=== PATIENT | male | born 1990 | race Caucasian/White ===

== ENCOUNTER 2017-11-03 20:10 | Emergency (ER) | payer OTHER ==
--- NOTE | 2017-11-03 21:07 | ED Physician Documentation ---
General Adult - HISTORIAN Historian: patient - HPI Stated Complaint: abd pain Chief Complaint: General Adult Onset: hours Timing: still present Severity: moderate Further Comments: yes (Pt is a 27 yo male with lower abd/pelvic pain that radiates to his testicles, L > R. Pt has had these sx before, more than a year ago, but not so intense. Pt states that pain is intermittent, occurring in his lower abd and doubling him over when it occurs. Pt did not have n/v, fever. Pain radiates to his testicles and to his rectum. Pt states he has been having normal BM's and has not been constipated. Pt notes that he has had lose BMs for years, and that he sees oil spots floating on top of water in the toilet. Pt has not had weight loss and is well-appearing/well developed (not malnourished).) - ROS CONST: no problems EYES/ENT: none CVS/RESP: none GI/: abdominal pain (lower abdomen, radiates to testicles, L > R and to rectum ) MS/SKIN/LYMPH: none - PAST HX Past History: asthma Allergies/Adverse Reactions: Allergies Allergy/AdvReac Type Severity Reaction Status Date / Time No Known Allergies Allergy Verified 11/03/17 20:27 Home Medications: Ambulatory Orders Medication Instructions Recorded Ciprofloxacin HCl [Cipro] 500 mg PO BID #20 tablet 11/03/17 Metronidazole 500 mg PO Q8H #30 tablet 11/03/17 - SOCIAL HX Smoking History: non-smoker Alcohol Use: none Drug Use: none - FAMILY HX Family History: No - VITAL SIGNS Vital Signs: Vital Signs Temp Pulse Resp BP Pulse Ox 98.5 F 91 H 16 124/87 98 11/03/17 20:20 11/03/17 20:20 11/03/17 20:20 11/03/17 20:20 11/03/17 20:20 - REVIEWED ASSESSMENTS Nursing Assessment Reviewed: Yes Vitals Reviewed: Yes Progress - Progress Progress: u/a - trace ketones, otherwise negative. d/w Dr. Waldron, [facility]. Possible bowel inflammation with referred testicular pain, ? diverticulitis. Possible diverticulitis Rx Metronidazole 500 mg. Take one by mouth every 8 hrs for 10 days. Do not drink alcohol while taking Metronidazole. Rx Ciprofloxacin 500 mg. Take one by mouth every 12 hrs for 10 days. Follow up with [facility] [facility] about possible fat malabsorption symptoms. ED Results Lab/Radiology - Orders Orders: ED Orders Category Date Time Status ABDOMEN 1 VIEW [RAD] Stat Exams 11/03/17 Ordered UA [URINALYSIS] Routine Lab 11/03/17 Ordered General Adult Physical Exam - PHYSICAL EXAM GENERAL APPEARANCE: moderate distress EENT: pharynx normal NECK: normal inspection, supple RESPIRATORY: no resp distress, chest non-tender, breath sounds normal CVS: reg rate & rhythm, heart sounds normal ABDOMEN: soft, normal bowel sounds, tenderness (lower abd/suprapubic tenderness) , other (genital exam is normal, slight L testicular tenderness, no hernia, normal cremateric reflex) BACK: normal inspection, no CVA tenderness SKIN: warm/dry, normal color EXTREMITIES: non-tender, normal range of motion, no evidence of injury NEURO: oriented X3, motor nml, sensation nml Discharge Clincal Impression: possible bowel inflammation, possible referred testicular pain Prescriptions: Ciprofloxacin HCl [Cipro] 500 mg PO BID #20 tablet Metronidazole 500 mg PO Q8H #30 tablet Referrals: Primary Doctor,No [Primary Care Provider] - Condition: Stable Disposition: 01 HOME, SELF-CARE Decision to Admit: NO Decision Time: 22:08
[2017-11-03] MEDS: CIPROFLOXACIN HCL 500 MG TABLET PO ONE (22:05)
[2017-11-03] MEDS: metroNIDAZOLE 500 MG TABLET PO ONE (22:05)
[2017-11-03 22:19] VITALS: BP 128/76
--- NOTE | 2017-11-04 03:52 | Diagnostic Imaging Report ---
BERTHA GRAHAM~ [facility] [id number] [facility] [address] [address] ~ ~ ~ ~ Report Submission Date: Nov 03, 2017 9:17:52 PM [employer] Patient ~ Study Name: ARNOLD RODRIGUEZ ~ Date: Nov 03, 2017 9:06:22 PM [employer] ~ Modality Type: CR Gender: M ~ Description: ABDOMEN : 86 ~ Institution: [facility] Physician: BERTHA GRAHAM ~ ~ ~ Single view abdomen History: Left lower quadrant pain Findings: Moderate colonic stool is observed. There is no radiopaque renal or ureteral stone. The bowel gas pattern is normal. Impression: Mild constipation. ~ Electronically signed on Nov 03, 2017 9:17:52 PM [employer] by: Arnold RUFFIN
[2017-11-04 15:29] LABS: APPEARANCE,URINE CLEAR (CLEAR); COLOR,URINE YELLOW (YELLOW); OCCULT BLOOD,URINE NEGATIVE (NEGATIVE); UROBILINOGEN URINE 0.2 Eu (0.2-1.0)
== END 2017-11-03 22:10 | disposition home or self-care (01) ==
LOC: ED 20:10
DX: R10.9 Unspecified abdominal pain (principal)
CPT/HCPCS: 74000; 81002; 99282

== ENCOUNTER 2018-09-26 19:59 | Emergency (ER) | payer OTHER ==
[2018-09-26] MEDS ORDERED: PROPARACAINE HCL 0.5% OPTH OP ONE (20:26)
[2018-09-26] MEDS ORDERED: OPTH IRRIGATION SOLUTION 120 ML BTL OP ONE (20:26)
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
[2018-09-26] MEDS ORDERED: DIPH,PERTUSS(ACELL),TET VAC/PF 0.5 ML DISP.SYRIN IM ONE (20:27)
[2018-09-26] MEDS ORDERED: SODIUM CHLORIDE 0.9% 3 ML INH.NEB IH ONE (20:27)
[2018-09-26 21:33] VITALS: BP 105/74
== END 2018-09-26 21:10 | disposition home or self-care (01) ==
LOC: ED 19:59
DX: H57.12 Ocular pain, left eye (principal); S00.12XA Contusion of left eyelid and periocular area, initial encounter; W20.8XXA Other cause of strike by thrown, projected or falling object, initial encounter; Y93.89 Activity, other specified
CPT/HCPCS: 90471; 90715; 99282; A9270; 99283

== ENCOUNTER 2019-03-23 09:37 | Emergency (ER) | payer OTHER ==
[2019-03-23] MEDS: ONDANSETRON HCL/PF 4 MG/ 2ML VIAL IVP ONE (09:55)
[2019-03-23] MEDS: ONDANSETRON HCL/PF 4 MG/ 2ML VIAL ONE (09:59)
[2019-03-23] MEDS: 0.9 % SODIUM CHLORIDE 1,000 ML IV ONE ×2 (10:03→10:04)
[2019-03-23] MEDS: KETOROLAC TROMETHAMINE 30 MG/1ML VIAL IV ONE (10:04)
[2019-03-23 10:09] LABS: eGFR (Non-African) > 60
[2019-03-23 10:15] LABS: MEAN CORPUSCULAR HEMOGLOBIN 31.7 pg (28.0-34.0)
[2019-03-23 10:16] LABS: BASOPHILS % 2 % (0-2); EOSINOPHILS % 4 % (0-7); MONOCYTES % 17 % (0-11); SEGMENTED NEUTROPHILS % 46 % (39-79)
--- NOTE | 2019-03-23 10:24 | ED Physician Documentation ---
Dizziness - HISTORIAN Historian: patient - HPI Stated Complaint: Dizziness Chief Complaint: Dizziness Timing: gradual onset Duration: worse Severity: moderate Associated Symptoms: nausea Decreased Ability to Stand/ Walk: difficult Usually: walks w/o assistance Worsened By: nothing Further Comments: yes (28 year old male patient presents with complaint of dizziness and nausea which started last night. Reports dizziness was worse this morning when he got up. C/O nausea, denies vomiting. Denies previous episodes.) - ROS CONST: none EYES/ENT: none GI/: none MS/SKIN/LYMPH: none NEURO/PSYCH: none CVS/RESP: none - PAST HX Past History: none Cardiac Disease: none Surgeries/Procedures: none Allergies/Adverse Reactions: Allergies Allergy/AdvReac Type Severity Reaction Status Date / Time No Known Allergies Allergy Verified 03/23/19 10:00 Home Medications: Ambulatory Orders Medication Instructions Recorded Meclizine HCl 25 mg PO TID PRN #21 tablet 03/23/19 Ondansetron HCl Rapdis [Zofran Odt] 4 mg PO Q6 PRN #30 tab 03/23/19 - SOCIAL HX Smoking History: cigarettes - FAMILY HX Family History: denies: none - VITAL SIGNS Vital Signs: Vital Signs Temp Pulse Resp BP Pulse Ox 98.5 F 72 16 124/77 99 03/23/19 09:37 03/23/19 10:05 03/23/19 09:37 03/23/19 09:37 03/23/19 09:37 - REVIEWED ASSESSMENTS Nursing Assessment Reviewed: Yes Vitals Reviewed: Yes Progress - Progress Progress: Dizziness did not improve after fluids. Meclizine po given. Discussed discharge plan and treatment options. Patient does not have a PCP. Order provide for PT referral. Discharged with physician list, Rx for meclizine prn and zofran prn. Patient requested work excuse for today. Dizziness improved at discharge. ED Results Lab/Radiology - Lab Results Lab Results: Lab Results 03/23/19 03/23/19 09:55 09:55 WBC 5.30 K/ul K/ul (4.00-12.00) RBC 5.23 M/ul H M/ul (3.90-5.20) Hgb 16.6 g/dL g/dL (12.0-18.0) Hct 47.9 % % (37.0-53.0) MCV 92.0 fl fl (80.0-100.0) MCH 31.7 pg pg (28.0-34.0) MCHC 34.5 g/dL g/dL (30.0-36.0) RDW 13.8 % % (11.3-14.3) Plt Count 177 K/mm3 K/mm3 (130-400) Seg Neutrophils % 46 % % (39-79) Band Neutrophils % 1 % % (0-12) Lymphocytes % 22 % % (16-50) Monocytes % 17 % H % (0-11) Eosinophils % 4 % % (0-7) Basophils % 2 % % (0-2) Reactive Lymphocytes 8 % H % (0-5) Sodium 136 mmol/L L mmol/L (137-145) Potassium 3.9 mmol/L mmol/L (3.5-5.1) Chloride 103 mmol/L mmol/L (98-107) Carbon Dioxide 27 mmol/L mmol/L (22-30) BUN 13 mg/dL mg/dL (9-20) Creatinine 1.03 mg/dL mg/dL (0.66-1.25) Estimated Creat Clear 125 Est GFR ( Amer) > 60 (60 - ) Est GFR (Non-Af Amer) > 60 (60 - ) Glucose 114 mg/dL H mg/dL (74-106) Calcium 9.5 mg/dL mg/dL (8.4-10.2) Total Bilirubin 0.5 mg/dL mg/dL (0.2-1.3) AST 39 U/L U/L (15-46) ALT 52 U/L H U/L (0-50) Alkaline Phosphatase 57 U/L U/L (38-126) Total Protein 7.3 g/dL g/dL (6.3-8.2) Albumin 4.2 g/dL g/dL (3.5-5.0) - Orders Orders: ED Orders Category Date Time Status Continuous EKG monitoring Q30M Care 03/23/19 10:[address] IV Lock 1T Care 03/23/19 09:53 Active CBC/PLATELET/DIFF Stat Lab 03/23/19 09:55 Completed CMP Stat Lab 03/23/19 09:55 Completed 0.9 % Sodium Chloride [Normal Saline] 1,000 ml Med 03/23/19 09:43 Discontinued IV .STK-MED 0.9 % Sodium Chloride [Normal Saline] 1,000 ml Med 03/23/19 09:54 Active IV Q1H Ketorolac Tromethamine [Toradol] Med 03/23/19 09:56 Discontinued 30 mg IV NOW ONE Ondansetron HCl/Pf [Zofran] Med 03/23/19 09:52 Discontinued 4 mg .ROUTE .STK-MED ONE Ondansetron HCl/Pf [Zofran] Med 03/23/19 09:55 Discontinued 4 mg IVP NOW ONE EKG WITH COMPARISON Stat Ther 03/23/19 Ordered Dizziness Physical Exam - Physical Exam General Appearance: mild distress EENT: eye inspection normal, ENT inspection normal, pharynx normal, no signs of dehydration, ALONDRA, no nystagmus, TM's nml Respiratory: no respiratory distress, breath sounds nml, chest non-tender CVS: reg rate & rhythm, heart sounds normal, equal pulses, no murmur, no gallop, PMI nml, no JVD, no friction rub, 24 Abdomen: soft, no organomegaly, normal bowel sounds, no abdominal bruit, no distension Skin: normal color, warm/dry, NR, INT, PAL, DR Neuro: nml orientation, nml speech, nml cognition, mood/affect nml Extremities: non-tender, normal range of motion, no evidence of injury, no edema, J, [employer] Cranial: nml as tested, no evidence of acute CVA Discharge Clincal Impression: Dizziness, Vertigo Prescriptions: Meclizine HCl 25 mg PO TID PRN #21 tablet PRN Reason: Dizziness Ondansetron HCl Rapdis [Zofran Odt] 4 mg PO Q6 PRN #30 tab PRN Reason: Nausea / Vomiting Referrals: Primary Doctor,No [Primary Care Provider] - 2 Days Additional Instructions: Rest today in a cool dark room A prescription for dizziness medication has been sent to the pharmacy as well as a prescription for nausea. A referral to PT for Gisele maneuvers has been provided. Make an appointment at the outpatient desk. Establish a primary care doctor and follow up next week. Condition: Stable Disposition: 01 HOME, SELF-CARE Decision to Admit: NO Decision Time: 10:48
[2019-03-23] MEDS: MECLIZINE HCL 25 MG TABLET PO ONE (10:29)
[2019-03-23 11:09] VITALS: BP 124/77
== END 2019-03-23 11:00 | disposition home or self-care (01) ==
LOC: ED 09:37
DX: R42 Dizziness and giddiness (principal)
CPT/HCPCS: 36415; 80053; 85025; 93005; 96374; 96375; 99283; 99284; J1885; J2405; J7030; S1016